=== PATIENT | female | born 1990 | race African-American/Black ===

== ENCOUNTER 2025-02-05 11:46 | Emergency (ER) | payer OTHER ==
[~2025-02-05] VITALS: Ht 170.2 cm; Wt 77.0 kg
[2025-02-05 11:53] VITALS: O2SAT 100
[2025-02-05] MEDS ORDERED: LABETALOL 5MG/ML 4ML INJ IV ONE (12:15)
[2025-02-05] MEDS: CLONIDINE 0.1MG TABLET PO ONE (12:38)
[2025-02-05] MEDS: HYDRALAZINE HCL 25MG TABLET PO ONE (12:39)
[2025-02-05 12:51] LABS: BASOPHILS % 0.7 % (0.0-2.0); EOSINOPHILS % 1.8 % (0.0-5.0); HEMATOCRIT. 35.4 % (36.0-48.0); HEMOGLOBIN. 11.5 g/dL (12.0-16.0); LYMPHOCYTES % 44.6 % (20.0-50.0); MEAN PLATELET VOLUME 9.5 fl (7.4-10.4); MONOCYTES % 6.4 % (2.0-8.0); NEUTROPHILS % 46.5 % (40.0-76.0); PLATELET 214 x1000/uL (130-400); RED BLOOD CELL COUNT 4.67 mill/uL (4.2-5.4); RED CELL DISTRIBUTION WIDTH 15.7 % (11.6-14.6)
[2025-02-05 13:04] LABS: CREATININE 0.8 mg/dL (0.6-1.0); HCG SCREEN NEGATIVE; UREA NITROGEN BLOOD 6 mg/dL (9-23)
[2025-02-05 13:06] LABS: ASPARTATE AMINOTRANSFERASE 25 IU/L (<34); BILIRUBIN DIRECT 0.2 mg/dL (<=3.0); BILIRUBIN TOTAL 0.9 mg/dL (0.1-1.0); PROTEIN TOTAL 7.3 g/dL (6.0-8.3)
[2025-02-05 13:41] VITALS: BP 151/98; PULSE 106; RESP 20; TEMP 36.9; O2SAT 100
[2025-02-05] MEDS: POTASSIUM CHLORIDE 20MEQ/PACKET PO ONE (13:41)
== END 2025-02-05 13:53 | disposition home or self-care (01) ==
LOC: ER 11:46 → CANBEDREQ 13:44 → ER 13:53
DX: I10 Essential (primary) hypertension (principal); E87.6 Hypokalemia; Z79.899 Other long term (current) drug therapy
CPT/HCPCS: 36415; 71045; 80048; 80076; 83735; 84703; 85025; 93005; 99285